=== PATIENT | male | born 1990 | race Native Hawaiian/Other Pacific Islander ===

== ENCOUNTER 2018-06-14 01:50 | Emergency (ER) | payer OTHER ==
[~2018-06-14] VITALS: Ht 170.2 cm; Wt 81.6 kg
[2018-06-14 02:32] LABS: PLATELET COUNT 382 K/uL (142-355)
[2018-06-14 02:50] LABS: POTASSIUM 3.2 mmol/L (3.6-5.2)
[2018-06-14 05:53] VITALS: BP 134/76; TEMP 98.3
== END 2018-06-14 05:56 | disposition home or self-care (01) ==
LOC: ED 01:50
DX: N13.2 Hydronephrosis with renal and ureteral calculous obstruction (principal)
CPT/HCPCS: 80053; 81000; 82150; 83690; 85027; 96360; 96374; 96375; 99284; J2175; J2405; Q9963

== ENCOUNTER 2020-06-06 22:19 | Emergency (ER) | payer OTHER ==
[~2020-06-06] VITALS: Ht 170.2 cm; Wt 95.3 kg
[2020-06-06 23:55] VITALS: BP 130/92; TEMP 98.4
== END 2020-06-06 23:55 | disposition home or self-care (01) ==
LOC: ED 22:19
DX: J06.9 Acute upper respiratory infection, unspecified (principal); F17.290 Nicotine dependence, other tobacco product, uncomplicated
CPT/HCPCS: 99282

== ENCOUNTER 2021-08-13 20:05 | Emergency (ER) | payer OTHER ==
[~2021-08-13] VITALS: Ht 170.2 cm; Wt 92.5 kg
[2021-08-13 20:58] LABS: PLATELET COUNT 308 K/uL (142-355)
[2021-08-13 21:06] LABS: POTASSIUM 3.7 mmol/L (3.6-5.2)
[2021-08-13 21:35] VITALS: BP 141/80; TEMP 98.1
== END 2021-08-13 21:40 | disposition home or self-care (01) ==
LOC: ED 20:05
PROVIDERS: Hospitalist
DX: S39.012A Strain of muscle, fascia and tendon of lower back, initial encounter (principal); X58.XXXA Exposure to other specified factors, initial encounter; Y92.89 Other specified places as the place of occurrence of the external cause
CPT/HCPCS: 36415; 80053; 81000; 83690; 85027; 96360; 96375; 99284; J1885; J2405